=== PATIENT | female | born 1965 | race Caucasian/White ===

== ENCOUNTER 2017-12-25 07:53 | Day surgery (SDC) | payer OTHER ==
[2017-12-25] MEDS ORDERED: PROPOFOL 20 ML ONE ×2 (08:16)
[2017-12-25] MEDS ORDERED: LIDOCAINE HCL/PF 2% SDV 5ML VIAL ONE (08:16)
[2017-12-25 08:37] VITALS: TEMP 98.1; BMI 21.0
[2017-12-25 11:40] VITALS: BP 105/72; PULSE 68
--- NOTE | 2017-12-26 18:16 | PATH ---
Surgical Pathology Report Patient Name: STACY MANNING [facility]. Rec. #: [id number] /Age/Gender: 1965 (Age: 52) / F Account: [id number] Location: [facility] Taken: 12/25/2017 Received: 12/25/2017 Reported: 12/26/2017 Physicians: Dwayne Jeff M.D. Specimen(s) Received DISTAL SIGMOID Clinical History Rule out colon cancer Postoperative diagnosis: polyp Final Diagnosis DISTAL SIGMOID POLYP, POLYPECTOMY: TUBULAR ADENOMA. Electronically Signed Solange Crum M.D. Gross Description Received in formalin, labeled "polyp distal sigmoid" are 2 diego, irregular portions of soft tissue averaging 0.2 cm. in greatest dimension. The specimens are submitted in toto in one cassette. /12/25/201712/25/2017
== END 2017-12-25 10:05 | disposition home or self-care (01) ==
LOC: FASU-ENDO 07:53
PROVIDERS: ATTEND Internal Medicine Gastroenterology
PROC: 0DBN8ZX Excision of Sigmoid Colon, Via Natural or Artificial Opening Endoscopic, Diagnostic (ICD-10-PCS; principal; 2017-12-25 08:55)
DX: Z12.11 Encounter for screening for malignant neoplasm of colon (principal); D12.5 Benign neoplasm of sigmoid colon
CPT/HCPCS: 84703; 88305-TC